=== PATIENT | female | born 1945 | race Hispanic/Latino ===

== ENCOUNTER 2022-12-27 12:37 | Observation (INO) | payer OTHER ==
[~2022-12-27] VITALS: Ht 152.4 cm; Wt 61.2 kg
[2022-12-27 13:27] LABS: BASOPHILS # (AUTO) 0.07 K/uL (0.00-0.20); BASOPHILS % (AUTO) 1.1 % (0.0-5.0); EOSINOPHILS # (AUTO) 0.11 K/uL (0.00-0.70); EOSINOPHILS % (AUTO) 1.7 % (0.0-8.0); HEMATOCRIT 33.7 % (36-48); IMMATURE GRANULOCYTE ABSOLUTE 0.04 K/uL (0-1); LYMPHOCYTES # (AUTO) 2.3 K/uL (1.0-4.8); LYMPHOCYTES % (AUTO) 35.4 % (21.0-51.0); MEAN CORPUSCULAR HEMOGLOBIN 30.9 pg (27.0-33.0); MEAN CORPUSCULAR HGB CONC 33.5 g/dL (32.0-36.0); MEAN CORPUSCULAR VOLUME 92.1 fL (79-99); MONOCYTES # (AUTO) 0.6 K/uL (0.1-1.0); MONOCYTES % (AUTO) 8.6 % (3.0-13.0); NEUTROPHILS # (AUTO) 3.4 K/uL (1.8-7.7); NEUTROPHILS % (AUTO) 52.6 % (40.0-77.0); PLATELET COUNT (AUTO) 215 K/uL (130-400); RED BLOOD CELL COUNT(AUTO) 3.66 MIL/uL (4.00-5.50); RED CELL DISTRIBUTION WIDTH 12.1 % (11.0-15.5); WHITE BLOOD COUNT (AUTO) 6.4 K/uL (4.8-10.8)
[2022-12-27 13:31] LABS: APPEARANCE,URINE CLEAR (CLEAR); BILIRUBIN,URINE NEGATIVE (NEGATIVE); COLOR,URINE COLORLESS (YELLOW); GLUCOSE, URINE (UA) NEGATIVE (NEGATIVE); KETONES,URINE NEGATIVE (NEGATIVE); LEUKOCYTE ESTERASE ,URINE NEGATIVE Leu/uL (NEGATIVE); NITRATE,URINE NEGATIVE (NEGATIVE); OCCULT BLOOD,URINE MODERATE (NEGATIVE); PROTEIN,URINE NEGATIVE (NEGATIVE); UROBILINOGEN,URINE 0.2 mg/dL (0.2-1.0)
[2022-12-27 13:33] LABS: ADD UA MICROSCOPIC YES
[2022-12-27 13:34] LABS: BACTERIA,URINE RARE /HPF (None Seen); MUCUS,URINE RARE LPF (None Seen); SQUAMOUS EPITHELIAL CELL,UR RARE /HPF (0-2); WBC,URINE 0-1 /HPF (0-1)
[2022-12-27 13:45] LABS: ALBUMIN 3.9 g/dL (3.5-5.0); BILIRUBIN,TOTAL 0.3 mg/dL (0.2-1.0); CREATININE 1.2 mg/dL (0.5-1.5); MAGNESIUM 2.4 mg/dL (1.80-2.40); POTASSIUM 4.5 mmol/L (3.5-5.1)
[2022-12-27] MEDS ORDERED: ASPIRIN 325MG TAB PO ONE (14:30)
[2022-12-27] MEDS ORDERED: ACETAMINOPHEN 500 MG TABLET PO PRN (18:30)
[2022-12-27] MEDS ORDERED: ONDANSETRON 4MG INJ IVP PRN (18:30)
[2022-12-27] MEDS ORDERED: NITROGLYCERIN 0.4 MG SL TAB SL PRN (18:30)
[2022-12-27] MEDS ORDERED: AMLODIPINE 5 MG TAB PO SCH (18:30)
[2022-12-27] MEDS: 0.9%NACL 1000ML 1,000 ML IV SCH (19:17)
[2022-12-28 01:27] LABS: BASOPHILS # (AUTO) 0.06 K/uL (0.00-0.20); BASOPHILS % (AUTO) 0.7 % (0.0-5.0); EOSINOPHILS # (AUTO) 0.22 K/uL (0.00-0.70); EOSINOPHILS % (AUTO) 2.7 % (0.0-8.0); HEMATOCRIT 30.9 % (36-48); IMMATURE GRANULOCYTE ABSOLUTE 0.02 K/uL (0-1); LYMPHOCYTES % (AUTO) 37.2 % (21.0-51.0); MEAN CORPUSCULAR HEMOGLOBIN 30.6 pg (27.0-33.0); MEAN CORPUSCULAR VOLUME 92.8 fL (79-99); MONOCYTES # (AUTO) 0.7 K/uL (0.1-1.0); MONOCYTES % (AUTO) 8.2 % (3.0-13.0); NEUTROPHILS # (AUTO) 4.2 K/uL (1.8-7.7); PLATELET COUNT (AUTO) 203 K/uL (130-400); RED BLOOD CELL COUNT(AUTO) 3.33 MIL/uL (4.00-5.50); RED CELL DISTRIBUTION WIDTH 12.2 % (11.0-15.5); WHITE BLOOD COUNT (AUTO) 8.2 K/uL (4.8-10.8)
[2022-12-28 01:44] LABS: CARBON DIOXIDE 25 mmol/L (21-32); CHLORIDE 109 mmol/L (101-111); CREATINE KINASE, TOTAL 116 U/L (21-232); CREATININE 1.2 mg/dL (0.5-1.5); GLOMERULAR FILTR. RATE CALC 46 mL/min (>90); GLUCOSE,RANDOM 118 mg/dL (70-105); POTASSIUM 4.1 mmol/L (3.5-5.1); SODIUM SERUM 141 mmol/L (136-145); UREA NITROGEN, BLOOD 20 mg/dL (7-18)
[2022-12-28] MEDS ORDERED: PANTOPRAZOLE 40 MG TAB DR PO SCH (09:00)
[2022-12-28] MEDS ORDERED: ENOXAPARIN SODIUM 30 MG/0.3 ML SQ SCH (09:00)
[2022-12-28] MEDS ORDERED: ATORVASTATIN 40 MG TABLET PO SCH (09:00)
[2022-12-28] MEDS ORDERED: LISINOPRIL 40 MG TABLET PO SCH (09:00)
[2022-12-28] MEDS ORDERED: IOHEXOL-350 75 ML VIAL IV ONE (13:58)
[2022-12-28] MEDS: 0.9%NACL 1000ML 1,000 ML IV SCH (14:30)
[2022-12-28 16:47] VITALS: BP 135/78; PULSE 84; RESP 18; O2SAT 98
== END 2022-12-28 16:46 | disposition home or self-care (01) ==
LOC: EDH 12:37 → EDHIP 18:05 → INTOOBSV 18:05
PROVIDERS: ADMIT Internal Medicine; ATTEND Internal Medicine
DX: R07.89 Other chest pain (principal); R31.29 Other microscopic hematuria; R79.89 Other specified abnormal findings of blood chemistry; R06.02 Shortness of breath; R51.9 Headache, unspecified; R53.1 Weakness; I10 Essential (primary) hypertension; E78.5 Hyperlipidemia, unspecified; M81.0 Age-related osteoporosis without current pathological fracture; E78.00 Pure hypercholesterolemia, unspecified; N13.30 Unspecified hydronephrosis; Z53.20 Procedure and treatment not carried out because of patient's decision for unspecified reasons; Z79.899 Other long term (current) drug therapy
CPT/HCPCS: 96360; 96361; 82550 ×2; 83735 ×2; 83874 ×2; 84484 ×3; 80053; 85025 ×2; 85378; 81001; 36415 ×2; 71045; 78582; 76770; 93970; 99291; 93005; 96372; 80048; 93306; J7030; A9540; A9558; G0378 ×3; J1650; Q9967

== ENCOUNTER → 2023-05-08 | Outpatient (CLI) | payer OTHER | END | disposition home or self-care (01) | LOC: SHCH 15:00 | PROVIDERS: ATTEND Internal Medicine | DX: I65.23 Occlusion and stenosis of bilateral carotid arteries (principal); R09.89 Other specified symptoms and signs involving the circulatory and respiratory systems | CPT/HCPCS: 93880 ==

== ENCOUNTER → 2024-11-20 | Outpatient (CLI) | payer OTHER, MEDICARE ==
[~2024-11-20] MED LIST: GADOTERATE MEGLUMINE 10 MMOL/20 ML VIAL IV ONE
[2024-11-20 10:45] LABS: CREATININE 1.4 mg/dL (0.5-1.0); GLOMERULAR FILTR. RATE CALC 38.0 mL/min (>90); UREA NITROGEN, BLOOD 30.0 mg/dL (7-18)
--- NOTE | 2024-11-21 14:12 | HMCIMG ---
EXAMINATION: NONCONTRAST MR EXAMINATION OF THE RIGHT KNEE. CLINICAL HISTORY: Mass COMPARISON: None provided. TECHNIQUE: Multiplanar, multisequence MR imaging of the right knee. FINDINGS: In the medial compartment, there is degenerative posterior horn and body medial meniscus tear with attenuation and moderate to advanced body segment extrusion. There is advanced diffuse weight bearing medial femorotibial chondral loss with subtle subchondral cystic change in mild marrow edema. Moderate peripheral and inner medial femorotibial osteophytes. In the lateral compartment, there is mild to moderate anterior horn and root lateral meniscus degeneration with small parameniscal cyst at the anterior horn root attachment. There is focal high grade inner lateral tibial chondral fissuring. Moderate to large peripheral and inner lateral femorotibial osteophytes. In the patellofemoral compartment, there is mild to moderate medial patellofemoral chondral thinning. Mild to moderate peripheral patellofemoral osteophytes. Mild to moderate anterior cruciate ligament mucoid degeneration. Posterior cruciate ligament is intact. Iliotibial band, fibular collateral ligament, biceps femoris tendon, conjoined tendon, and popliteus tendon are intact. Medial collateral ligament is bowed but intact. The extensor mechanism and patellar retinaculum are intact. There is a small knee joint effusion with peripheral enhancement. There is mild peripherally enhancing lesion lateral to the popliteus and fibular collateral ligament, extending for a craniocaudal length of 5.2 cm measuring 1.8 cm AP and 0.7 cm transverse There is no bone marrow signal abnormality seen to suggest fracture, avascular necrosis, or osteomyelitis. The musculature surrounding the knee demonstrate normal bulk and signal. IMPRESSION: 1. Advanced osteoarthritis with degenerative meniscal tears, chondral loss, and osteophytes in multiple compartments. 2. Mild peripherally enhancing lesion lateral to the popliteus and fibular collateral ligament, measuring 5.2 x 1.8 x 0.7 cm, could reflect a ganglion cyst. If clinically warranted this may be followed with a repeat MRI examination in 6 months. 3. Small joint effusion. /[place]
== END | disposition home or self-care (01) ==
LOC: LAB 09:17
PROVIDERS: ATTEND Student in an Organized Health Care Education/Training Program
DX: S83.241A Other tear of medial meniscus, current injury, right knee, initial encounter (principal); M17.11 Unilateral primary osteoarthritis, right knee; M23.041 Cystic meniscus, anterior horn of lateral meniscus, right knee; M25.861 Other specified joint disorders, right knee; M25.461 Effusion, right knee; M79.662 Pain in left lower leg; M25.761 Osteophyte, right knee; X58.XXXA Exposure to other specified factors, initial encounter; Y93.89 Activity, other specified; Y92.89 Other specified places as the place of occurrence of the external cause; Y99.8 Other external cause status
CPT/HCPCS: 73723; 84520; 82565; 36415; A9575